=== PATIENT | female | born 1975 | race Caucasian/White ===

== ENCOUNTER 2017-05-27 09:14 | Emergency (ER) | payer SELFPAY ==
--- NOTE | 2017-05-27 11:42 | RAD ---
RIGHT KNEE SERIES: INDICATION: Trauma, pain. FINDINGS: No fracture or dislocation. No significant joint capsular distention. There is minute osteophytosi s. IMPRESSION: No acute osseous abnormality of the right knee. POS: [facility]
== END 2017-05-27 10:10 | disposition home or self-care (01) ==
LOC: MADERS 09:14
DX: F17.210 Nicotine dependence, cigarettes, uncomplicated (principal); X50.1XXA Overexertion from prolonged static or awkward postures, initial encounter

== ENCOUNTER 2017-09-10 09:43 | Emergency (ER) | payer SELFPAY ==
[2017-09-10] MEDS ORDERED: Benzonatate 100 MG CAP ONE (10:17)
[2017-09-10] MEDS ORDERED: Dexamethasone 4 MG TAB ONE (10:21)
== END 2017-09-10 11:05 | disposition home or self-care (01) ==
LOC: MADERS 09:43
DX: J20.9 Acute bronchitis, unspecified (principal); F31.9 Bipolar disorder, unspecified; Z87.891 Personal history of nicotine dependence; Z87.442 Personal history of urinary calculi
CPT/HCPCS: 99283; J8540

== ENCOUNTER 2017-10-04 10:52 | Emergency (ER) | payer SELFPAY ==
[2017-10-04] MEDS ORDERED: AMOXicillin 250 MG CAP ONE (12:01)
[2017-10-04] MEDS ORDERED: Benzonatate 100 MG CAP ONE (12:01)
== END 2017-10-04 12:20 | disposition home or self-care (01) ==
LOC: MADERS 10:52
DX: J20.9 Acute bronchitis, unspecified (principal); Z87.891 Personal history of nicotine dependence; F31.9 Bipolar disorder, unspecified
CPT/HCPCS: 99283

== ENCOUNTER 2018-03-10 09:17 | Emergency (ER) | payer SELFPAY ==
[2018-03-10] MEDS ORDERED: Naproxen 500 MG TAB ONE (09:44)
[2018-03-10] MEDS ORDERED: Cephalexin 500 MG CAP ONE (09:44)
[2018-03-10] MEDS ORDERED: Sulfameth/Trimethoprim DS 800-160mg TAB ONE (09:44)
[2018-03-10] MEDS ORDERED: Adacel (T-DAP) 0.5 ML VIAL ONE (09:53)
== END 2018-03-10 09:50 | disposition home or self-care (01) ==
LOC: MADERS 09:17
DX: T63.301A Toxic effect of unspecified spider venom, accidental (unintentional), initial encounter (principal); L03.113 Cellulitis of right upper limb; F31.9 Bipolar disorder, unspecified; Z87.891 Personal history of nicotine dependence; Z23 Encounter for immunization; Z85.43 Personal history of malignant neoplasm of ovary; Z85.819 Personal history of malignant neoplasm of unspecified site of lip, oral cavity, and pharynx; Z87.442 Personal history of urinary calculi
CPT/HCPCS: 90471; 90715

== ENCOUNTER 2018-09-11 07:48 | Emergency (ER) | payer SELFPAY ==
[2018-09-11] MEDS ORDERED: Ondansetron ODT 4 MG TAB ONE (08:31)
[2018-09-11 08:45] LABS: #Basophils 0.1 thou/uL (0.0-0.2); #Eosinphils 0.1 thou/uL (0.0-0.7); #Lymphocytes 1.6 thou/uL (1.20-3.40); #Monocytes 0.5 thou/uL (0.11-0.59); #Neutrophils 4.5 thou/uL (1.40-6.50); %Basophils 0.9 % (0.0-1.0); %Eosinophils 0.9 % (0.0-10.0); %Lymphocytes 23.4 % (21.0-51.0); %Monocytes 7.2 % (0.0-10.0); %Neutrophils 67.6 % (42.0-75.0); Hemoglobin 12.5 g/dL (12.0-16.0); Mean Corpuscular HGB CONC 32.4 g/dL (32.0-36.0); Mean Corpuscular Hemoglobin 28.1 pg (27.0-31.0); Mean Corpuscular Volume 86.9 fL (78.0-98.0); Mean Platelet Volume 7.2 fL (7.4-10.4); Platelet Count 251 thou/uL (130-400); RBC Distribution Width 11.8 % (11.5-14.5); Red Blood Cell (RBC) Count 4.43 mill/uL (4.20-5.40); White Blood Cell (WBC) Count 6.6 thou/uL (4.8-10.8)
[2018-09-11 09:05] LABS: ALT (SGPT) 16 U/L (8-55); AST (SGOT) 14 U/L (5-34); Albumin 3.9 g/dL (3.5-5.0); Alkaline Phosphatase 107 U/L (40-150); Anion Gap 13 mmol/L (10-20); BUN (Urea Nitrogen) 14 mg/dL (7.0-18.7); Bilirubin, Total 0.6 mg/dL (0.2-1.2); Calc. Creatinine Clearance 0 mL/min (70-130); Calcium 9.1 mg/dL (7.8-10.44); Carbon Dioxide 24 mmol/L (22-29); Chloride 106 mmol/L (98-107); Estimated GFR-MDRD 61; Globulin 3.1 g/dL (2.4-3.5); Glucose 104 mg/dL (70-105); Sodium 139 mmol/L (136-145)
[2018-09-11 09:07] LABS: BHCG - Serum Negative (NEGATIVE); Pregs Control Background? CLEAR/WHITE (CLR/WHITE); Pregs Control Bar Appear? YES (CONTROL BAR)
== END 2018-09-11 09:47 | disposition home or self-care (01) ==
LOC: MADERS 07:48
DX: R11.2 Nausea with vomiting, unspecified (principal); F31.9 Bipolar disorder, unspecified; Z79.891 Long term (current) use of opiate analgesic
CPT/HCPCS: 36415; 80053; 84703; 85025; 99284; Q0162

== ENCOUNTER 2021-03-15 19:28 | Emergency (ER) | payer SELFPAY | END 2021-03-15 21:20 | disposition home or self-care (01) | LOC: MADERS 19:28 | DX: M25.561 Pain in right knee (principal); M25.562 Pain in left knee; M79.672 Pain in left foot; M79.671 Pain in right foot; R21 Rash and other nonspecific skin eruption; F17.210 Nicotine dependence, cigarettes, uncomplicated; M19.90 Unspecified osteoarthritis, unspecified site; Z85.118 Personal history of other malignant neoplasm of bronchus and lung; Z85.43 Personal history of malignant neoplasm of ovary | CPT/HCPCS: 99281 ==

== ENCOUNTER 2021-09-09 06:14 | Emergency (ER) | payer SELFPAY ==
[2021-09-09 06:43] LABS: Bilirubin Negative (Negative); Blood, Urine Trace (Negative); Clarity Slightly Cloudy (Clear); Glucose, Urine (Dipstick) Negative (Negative); Ketone, Urine Negative (Negative); Leukocyte Trace (Negative); Nitrite Positive (Negative); Protein, Urine (Dipstick) Negative (Neg-Trace); Urobilinogen 0.2 mg/dL (Less than 2)
[2021-09-09 06:55] LABS: Bacteria/HPF 3+ HPF (None Seen); RBC/HPF 0-3 HPF (0-3)
[2021-09-09 07:15] LABS: #Eosinphils 0.1 thou/uL (0.0-0.7); #Lymphocytes 1.6 thou/uL (1.20-3.40); #Monocytes 0.8 thou/uL (0.11-0.59); #Neutrophils 7.6 thou/uL (1.40-6.50); %Basophils 0.5 % (0.0-1.0); %Eosinophils 0.7 % (0.0-10.0); %Monocytes 7.7 % (0.0-10.0); %Neutrophils 75.1 % (42.0-75.0); Mean Corpuscular HGB CONC 31.2 g/dL (32.0-36.0); Mean Corpuscular Hemoglobin 27.2 pg (27.0-31.0); Mean Corpuscular Volume 87.1 fL (78.0-98.0); Mean Platelet Volume 6.7 fL (7.4-10.4); Platelet Count 218 thou/uL (130-400); RBC Distribution Width 13.6 % (11.5-14.5); Red Blood Cell (RBC) Count 4.78 mill/uL (4.20-5.40); White Blood Cell (WBC) Count 10.1 thou/uL (4.8-10.8)
[2021-09-09 07:24] LABS: BHCG - Serum Negative (NEGATIVE); Pregs Control Background? CLEAR/WHITE (CLR/WHITE); Pregs Control Bar Appear? YES (CONTROL BAR)
[2021-09-09 07:27] LABS: ALT (SGPT) 24 U/L (8-55); AST (SGOT) 18 U/L (5-34); Albumin 3.6 g/dL (3.5-5.0); Alkaline Phosphatase 102 U/L (40-110); Anion Gap 15 mmol/L (10-20); BUN (Urea Nitrogen) 6 mg/dL (7.0-18.7); Bilirubin, Total 0.4 mg/dL (0.2-1.2); Calc. Creatinine Clearance 0 mL/min (70-130); Calcium 8.7 mg/dL (7.8-10.44); Carbon Dioxide 27 mmol/L (22-29); Chloride 102 mmol/L (98-107); Globulin 3.4 g/dL (2.4-3.5); Glucose 138 mg/dL (70-105); Potassium 3.5 mmol/L (3.5-5.1); Sodium 140 mmol/L (136-145)
[2021-09-09 07:28] LABS: SARS-CoV-2 NAA Rapid Test Not Detected (NotDetected)
[2021-09-09 07:28] LABS: CRP (Inflammatory) 4.6 mg/dL (= or < 0.5)
[2021-09-09] MEDS ORDERED: cefTRIAXone\\ROCEPHIN 2 GM VIAL ONE (07:29)
[2021-09-09] MEDS ORDERED: Sodium Chloride 0.9% 100 ML ONE (07:29)
[2021-09-09] MEDS ORDERED: Azithromycin 500 MG VIAL ONE (07:29)
[2021-09-09] MEDS ORDERED: methylPREDNISolone Sod Succ/PF 125 MG/2 ML VIAL ONE (07:29)
[2021-09-09] MEDS ORDERED: Sodium Chloride 0.9% 250 ML 250 ML ONE (07:29)
== END 2021-09-09 09:10 | disposition home or self-care (01) ==
LOC: MADERS 06:14
DX: J44.1 Chronic obstructive pulmonary disease with (acute) exacerbation (principal); N39.0 Urinary tract infection, site not specified; M19.90 Unspecified osteoarthritis, unspecified site; F17.210 Nicotine dependence, cigarettes, uncomplicated; E66.9 Obesity, unspecified; D02.20 Carcinoma in situ of unspecified bronchus and lung; D07.39 Carcinoma in situ of other female genital organs; Z20.822 Contact with and (suspected) exposure to COVID-19; Z68.45 Body mass index [BMI] 70 or greater, adult
CPT/HCPCS: 0240U; 71046; 80053; 81003; 81015; 82550; 83605; 83880; 84484; 84703; 85025; 86140; 87040; 93005; 94760; 96365; 96375; J0456; J0696; J2930; J3490; J7050; J7620

== ENCOUNTER 2022-05-13 20:37 | Emergency (ER) | payer SELFPAY ==
[2022-05-13] MEDS ORDERED: Azithromycin 250 MG TAB ONE (22:21)
[2022-05-13] MEDS ORDERED: Acetaminophen 500 MG TAB ONE (22:21)
[2022-05-13] MEDS ORDERED: predniSONE 20 MG TAB ONE (22:21)
== END 2022-05-13 23:01 | disposition home or self-care (01) ==
LOC: MADERS 20:37
DX: J44.1 Chronic obstructive pulmonary disease with (acute) exacerbation (principal); Z20.822 Contact with and (suspected) exposure to COVID-19; F17.210 Nicotine dependence, cigarettes, uncomplicated
CPT/HCPCS: J7512; J7620; U0003; U0005

== ENCOUNTER 2022-08-12 13:43 | Emergency (ER) | payer OTHER ==
[2022-08-12] MEDS ORDERED: Boostrix 0.5 ML (Tdap) VIAL (>/=7 yrs of age) ONE (14:54)
[2022-08-12] MEDS ORDERED: Sodium Chloride 0.9% 250 ML 250 ML ONE (14:54)
[2022-08-12 14:57] LABS: #Lymphocytes 1.8 thou/uL (1.20-3.40); #Monocytes 0.6 thou/uL (0.11-0.59); #Neutrophils 5.5 thou/uL (1.40-6.50); %Basophils 0.5 % (0.0-1.0); %Eosinophils 0.3 % (0.0-10.0); %Lymphocytes 22.9 % (21.0-51.0); %Monocytes 7.3 % (0.0-10.0); Hemoglobin 12.5 g/dL (12.0-16.0); Mean Corpuscular HGB CONC 33.1 g/dL (32.0-36.0); Mean Corpuscular Volume 87.6 fl (78.0-98.0); Mean Platelet Volume 6.7 fL (7.4-10.4); Platelet Count 255 10x3/uL (130-400); RBC Distribution Width 12.7 % (11.5-14.5); Red Blood Cell (RBC) Count 4.31 mill/uL (4.20-5.40)
[2022-08-12 15:04] LABS: BHCG - Serum Negative (NEGATIVE); Pregs Control Background? CLEAR/WHITE (CLR/WHITE); Pregs Control Bar Appear? YES (CONTROL BAR)
[2022-08-12 15:12] LABS: ALT (SGPT) 13 U/L (8-55); AST (SGOT) 11 U/L (5-34); Albumin 3.9 g/dL (3.5-5.0); Alkaline Phosphatase 118 U/L (40-110); Anion Gap 16 mmol/L (10-20); BUN (Urea Nitrogen) 9 mg/dL (7.0-18.7); Bilirubin, Total 0.3 mg/dL (0.2-1.2); Calc. Creatinine Clearance 0 mL/min (70-130); Calcium 8.7 mg/dL (7.8-10.44); Carbon Dioxide 25 mmol/L (22-29); Chloride 101 mmol/L (98-107); Estimated GFR 86; Globulin 3.4 g/dL (2.4-3.5); Glucose 115 mg/dL (70-105); Potassium 3.5 mmol/L (3.5-5.1); Protein, Total 7.3 g/dL (6.0-8.3); Sodium 138 mmol/L (136-145)
[2022-08-12] MEDS ORDERED: Sodium Chloride 0.9% 1,000 ML ONE (15:41)
[2022-08-12] MEDS ORDERED: Sodium Chloride 0.9% 100 ML ONE (16:06)
[2022-08-12] MEDS ORDERED: Piperacillin/Tazobactam 4.5 GM VIAL ONE (16:06)
[2022-08-12] MEDS ORDERED: Ketorolac Tromethamine 30 MG/ML VIAL ONE (16:31)
[2022-08-12] MEDS ORDERED: Nicotine 7 MG PATCH ONE (16:52)
[2022-08-12] MEDS ORDERED: Acetaminophen 325 MG TAB PO PRN (19:45)
== END 2022-08-12 18:15 | disposition short-term general hospital (02) ==
LOC: MADERS 13:43
DX: L03.115 Cellulitis of right lower limb (principal); L97.919 Non-pressure chronic ulcer of unspecified part of right lower leg with unspecified severity; M86.161 Other acute osteomyelitis, right tibia and fibula; E66.9 Obesity, unspecified; J44.9 Chronic obstructive pulmonary disease, unspecified; F17.210 Nicotine dependence, cigarettes, uncomplicated; Z79.899 Other long term (current) drug therapy
CPT/HCPCS: 80053; 83605; 84703; 85025; 85652; 86140; 87040; 90471; 90715; 96365; 96367; 96375; J1885; J2543; J3370; J3490; J7050

== ENCOUNTER 2022-08-30 19:35 | Emergency (ER) | payer OTHER ==
[2022-08-30 20:47] LABS: #Basophils 0.1 thou/uL (0.0-0.2); #Eosinphils 0.1 thou/uL (0.0-0.7); #Lymphocytes 2.1 thou/uL (1.20-3.40); #Monocytes 0.7 thou/uL (0.11-0.59); #Neutrophils 5.4 thou/uL (1.40-6.50); %Eosinophils 0.7 % (0.0-10.0); %Lymphocytes 25.5 % (21.0-51.0); %Monocytes 7.9 % (0.0-10.0); %Neutrophils 64.9 % (42.0-75.0); Hemoglobin 12.3 g/dL (12.0-16.0); Mean Corpuscular HGB CONC 33.7 g/dL (32.0-36.0); Mean Corpuscular Volume 86.2 fl (78.0-98.0); Mean Platelet Volume 7.2 fL (7.4-10.4); Platelet Count 241 10x3/uL (130-400); RBC Distribution Width 12.5 % (11.5-14.5); Red Blood Cell (RBC) Count 4.24 mill/uL (4.20-5.40); White Blood Cell (WBC) Count 8.3 10x3/uL (4.8-10.8)
[2022-08-30] MEDS ORDERED: Morphine 4 MG/ML VIAL ONE (20:49)
[2022-08-30] MEDS ORDERED: Sodium Chloride 0.9% 250 ML 500 ML ONE (20:49)
[2022-08-30] MEDS ORDERED: Vancomycin HCl 500 MG VIAL ONE (20:49)
[2022-08-30 21:04] LABS: Anion Gap 14 mmol/L (10-20); BUN (Urea Nitrogen) 11 mg/dL (7.0-18.7); Calc. Creatinine Clearance 0 mL/min (70-130); Calcium 9.5 mg/dL (7.8-10.44); Carbon Dioxide 26 mmol/L (22-29); Chloride 101 mmol/L (98-107); Estimated GFR 90; Glucose 101 mg/dL (70-105); Potassium 3.5 mmol/L (3.5-5.1); Sodium 137 mmol/L (136-145)
[2022-08-31] MEDS ORDERED: Ketorolac Tromethamine 30 MG/ML VIAL ONE ×2 (02:04→10:06)
[2022-08-31] MEDS ORDERED: Morphine 4 MG/ML VIAL ONE (05:46)
== END 2022-08-31 15:15 | disposition short-term general hospital (02) ==
LOC: MADERS 19:35
DX: L03.115 Cellulitis of right lower limb (principal); J44.9 Chronic obstructive pulmonary disease, unspecified; F17.200 Nicotine dependence, unspecified, uncomplicated
CPT/HCPCS: 80048; 83605; 85025; 86140; 87040; 87070; 87077; 87186; 87205; 96365; 96366; 96375; 96376; J1885; J2270; J3370; J7050

== ENCOUNTER 2023-04-27 12:33 | Emergency (ER) | payer OTHER ==
[2023-04-27 13:40] LABS: #Basophils 0.1 thou/uL (0.0-0.2); #Eosinphils 0.1 thou/uL (0.0-0.7); #Lymphocytes 2.4 thou/uL (1.20-3.40); #Monocytes 0.9 thou/uL (0.11-0.59); #Neutrophils 6.8 thou/uL (1.40-6.50); %Basophils 0.9 % (0.0-1.0); %Lymphocytes 23.2 % (21.0-51.0); %Monocytes 8.5 % (0.0-10.0); %Neutrophils 66.3 % (42.0-75.0); Hemoglobin 12.8 g/dL (12.0-16.0); Mean Corpuscular HGB CONC 34.3 g/dL (32.0-36.0); Mean Corpuscular Hemoglobin 29.7 pg (27.0-31.0); Mean Corpuscular Volume 86.6 fl (78.0-98.0); Mean Platelet Volume 7.7 fL (7.4-10.4); Platelet Count 311 10x3/uL (130-400); RBC Distribution Width 13.2 % (11.5-14.5); Red Blood Cell (RBC) Count 4.32 mill/uL (4.20-5.40); White Blood Cell (WBC) Count 10.2 10x3/uL (4.8-10.8)
[2023-04-27 13:55] LABS: CRP (Inflammatory) 0.55 mg/dL (= or < 0.5)
[2023-04-27 13:56] LABS: ALT (SGPT) 21 U/L (8-55); AST (SGOT) 14 U/L (5-34); Albumin 3.9 g/dL (3.5-5.0); Alkaline Phosphatase 101 U/L (40-110); Anion Gap 14 mmol/L (10-20); BUN (Urea Nitrogen) 13 mg/dL (7.0-18.7); Bilirubin, Total 0.5 mg/dL (0.2-1.2); Calc. Creatinine Clearance 0 mL/min (70-130); Calcium 9.3 mg/dL (7.8-10.44); Carbon Dioxide 28 mmol/L (22-29); Chloride 95 mmol/L (98-107); Estimated GFR 62; Globulin 3.5 g/dL (2.4-3.5); Glucose 94 mg/dL (70-105); Potassium 3.3 mmol/L (3.5-5.1); Protein, Total 7.4 g/dL (6.0-8.3); Sodium 134 mmol/L (136-145)
[2023-04-27] MEDS ORDERED: HYDROcodone/Acetaminophen 5/325 mg Tablet ONE (13:58)
[2023-04-27 14:04] LABS: Magnesium 1.8 mg/dL (1.6-2.6)
[2023-04-27] MEDS ORDERED: Sodium Chloride 0.9% 250 ML 250 ML ONE (14:56)
[2023-04-27] MEDS ORDERED: Vancomycin 1 GM VIAL ONE (14:56)
== END 2023-04-27 15:55 | disposition home or self-care (01) ==
LOC: MADERS 12:33
DX: L02.415 Cutaneous abscess of right lower limb (principal); L03.319 Cellulitis of trunk, unspecified; E66.9 Obesity, unspecified; J44.9 Chronic obstructive pulmonary disease, unspecified; E11.9 Type 2 diabetes mellitus without complications; Z87.891 Personal history of nicotine dependence
CPT/HCPCS: 80053; 83605; 83735; 85025; 86140; 87070; 87077; 87186; 87205; 96365; J3370; J7050

== ENCOUNTER 2023-05-26 08:37 | Emergency (ER) | payer OTHER ==
[2023-05-26 09:10] LABS: #Lymphocytes 1.9 thou/uL (1.20-3.40); #Monocytes 0.5 thou/uL (0.11-0.59); #Neutrophils 5.9 thou/uL (1.40-6.50); %Basophils 0.6 % (0.0-1.0); %Eosinophils 0.2 % (0.0-10.0); %Lymphocytes 22.8 % (21.0-51.0); %Monocytes 5.6 % (0.0-10.0); %Neutrophils 70.8 % (42.0-75.0); Hematocrit 41.3 % (36.0-47.0); Hemoglobin 14.2 g/dL (12.0-16.0); Mean Corpuscular HGB CONC 34.3 g/dL (32.0-36.0); Mean Corpuscular Hemoglobin 29.6 pg (27.0-31.0); Mean Corpuscular Volume 86.1 fl (78.0-98.0); Mean Platelet Volume 8.3 fL (7.4-10.4); Platelet Count 270 10x3/uL (130-400); RBC Distribution Width 12.5 % (11.5-14.5); Red Blood Cell (RBC) Count 4.79 mill/uL (4.20-5.40); White Blood Cell (WBC) Count 8.3 10x3/uL (4.8-10.8)
[2023-05-26 09:15] LABS: Bilirubin Negative (Negative); Blood, Urine Trace (Negative); Glucose, Urine (Dipstick) Negative (Negative); Ketone, Urine Negative (Negative); Leukocyte Negative (Negative); Nitrite Negative (Negative); Protein, Urine (Dipstick) Negative (Neg-Trace); Specific Gravity, Urine 1.025 (1.005-1.030); pH, Urine 5.5 (5.0-9.0)
[2023-05-26 09:16] LABS: Clarity Hazy (Clear)
[2023-05-26 09:27] LABS: Bacteria/HPF 2+ HPF (None Seen); RBC/HPF 0-3 HPF (0-3); WBC/HPF 0-3 HPF (0-3)
[2023-05-26 09:28] LABS: ALT (SGPT) 10 U/L (8-55); AST (SGOT) 12 U/L (5-34); Albumin 4.3 g/dL (3.5-5.0); Alkaline Phosphatase 110 U/L (40-110); Anion Gap 17 mmol/L (10-20); BUN (Urea Nitrogen) 10 mg/dL (7.0-18.7); Calc. Creatinine Clearance 0 mL/min (70-130); Calcium 9.8 mg/dL (7.8-10.44); Carbon Dioxide 33 mmol/L (22-29); Chloride 90 mmol/L (98-107); Estimated GFR 54; Globulin 3.9 g/dL (2.4-3.5); Glucose 116 mg/dL (70-105); Potassium 3.1 mmol/L (3.5-5.1); Protein, Total 8.2 g/dL (6.0-8.3); Sodium 137 mmol/L (136-145)
[2023-05-26 09:28] LABS: CAUTI Indications for Culture Pelvic or flank pain; Urine Culture Reflex Yes Yes
[2023-05-26] MEDS ORDERED: Ketorolac Tromethamine 30 MG/ML VIAL ONE (09:41)
[2023-05-26] MEDS ORDERED: Morphine 4 MG/ML VIAL ONE (09:41)
[2023-05-26] MEDS ORDERED: Ondansetron PF 4 MG/2 ML Vial ONE (09:41)
== END 2023-05-26 10:46 | disposition home or self-care (01) ==
LOC: MADERS 08:37
DX: R10.9 Unspecified abdominal pain (principal); E87.6 Hypokalemia; E87.8 Other disorders of electrolyte and fluid balance, not elsewhere classified; J44.9 Chronic obstructive pulmonary disease, unspecified; E11.9 Type 2 diabetes mellitus without complications; Z87.891 Personal history of nicotine dependence; Z79.899 Other long term (current) drug therapy
CPT/HCPCS: 74176; 80053; 81001; 85025; 87086; 96374; 96375; J1885; J2270; J2405

== ENCOUNTER 2024-05-03 14:45 | Emergency (ER) | payer OTHER ==
[2024-05-03] MEDS ORDERED: Ipratropium/Albuterol 3 ML NEB ONE (15:44)
[2024-05-03] MEDS ORDERED: Ibuprofen 800 MG TAB ONE (15:44)
[2024-05-03] MEDS ORDERED: Ibuprofen 600 MG TAB ONE (15:49)
[2024-05-03] MEDS ORDERED: metroNIDAZOLE 500 MG (100 mL) BAG ONE (16:18)
[2024-05-03 16:30] LABS: SARS-CoV-2 E Target Negative; SARS-CoV-2 N2 Target Negative; SARS-CoV-2 NAA Rapid Test Not Detected (NotDetected); SARS-CoV-2 RdRP gene Negative
== END 2024-05-03 16:26 | disposition left against medical advice (07) ==
LOC: MADERS 14:45
DX: J06.9 Acute upper respiratory infection, unspecified (principal); L03.115 Cellulitis of right lower limb; I10 Essential (primary) hypertension; J44.9 Chronic obstructive pulmonary disease, unspecified; Z87.891 Personal history of nicotine dependence
CPT/HCPCS: 71046; 94640; J7620; U0002

== ENCOUNTER 2024-07-13 05:39 | Emergency (ER) | payer OTHER ==
[2024-07-13] MEDS ORDERED: Diphenoxylate HCl/Atropine Tablet ONE ×2 (06:44→07:01)
[2024-07-13] MEDS ORDERED: Sodium Chloride 0.9% 2,000 ML ONE (06:44)
[2024-07-13] MEDS ORDERED: Ondansetron PF 4 MG/2 ML Vial ONE (06:44)
[2024-07-13 07:50] LABS: #Eosinophils 0.1 thou/uL (0.0-0.7); #Lymphocytes 0.8 thou/uL (1.20-3.40); #Monocytes 0.3 thou/uL (0.11-0.59); #Neutrophils 7.9 thou/uL (1.40-6.50); %Basophils 0.4 % (0.0-1.0); %Eosinophils 1.3 % (0.0-10.0); %Lymphocytes 8.3 % (21.0-51.0); %Monocytes 3.4 % (0.0-10.0); %Neutrophils 86.6 % (42.0-75.0); Hematocrit 41.1 % (36.0-47.0); Hemoglobin 13.4 g/dL (12.0-16.0); Mean Corpuscular HGB CONC 32.5 g/dL (32.0-36.0); Mean Corpuscular Hemoglobin 28.4 pg (27.0-31.0); Mean Corpuscular Volume 87.5 fl (78.0-98.0); Mean Platelet Volume 7.8 fL (7.4-10.4); Platelet Count 200 10x3/uL (130-400); RBC Distribution Width 13.6 % (11.5-14.5); White Blood Cell (WBC) Count 9.2 10x3/uL (4.8-10.8)
[2024-07-13 08:02] LABS: ALT (SGPT) 24 U/L (8-55); AST (SGOT) 13 U/L (5-34); Albumin 3.6 g/dL (3.5-5.0); Alkaline Phosphatase 84 U/L (40-110); Anion Gap 18 mmol/L (10-20); BUN (Urea Nitrogen) 12 mg/dL (9.8-20.1); Bilirubin, Total 0.7 mg/dL (0.2-1.2); Calc. Creatinine Clearance 0 mL/min (70-130); Calcium 8.9 mg/dL (7.8-10.44); Carbon Dioxide 28 mmol/L (22-29); Chloride 98 mmol/L (98-107); Estimated GFR 82; Globulin 3.8 g/dL (2.4-3.5); Glucose 136 mg/dL (70-105); Potassium 2.9 mmol/L (3.5-5.1); Protein, Total 7.4 g/dL (6.0-8.3); Sodium 141 mmol/L (136-145)
[2024-07-13] MEDS ORDERED: Potassium Chloride 20 MEQ TAB ONE (08:14)
[2024-07-13 08:23] LABS: Magnesium 1.6 mg/dL (1.6-2.6)
[2024-07-13] MEDS ORDERED: Albuterol 200 PUFF (6.7GM INHALER) ONE (08:40)
[2024-07-13] MEDS ORDERED: methylPREDNISolone Sod Succ/PF 125 MG/2 ML VIAL ONE (08:40)
== END 2024-07-13 09:50 | disposition home or self-care (01) ==
LOC: MADERS 05:39
DX: J44.1 Chronic obstructive pulmonary disease with (acute) exacerbation (principal); E87.6 Hypokalemia; R11.10 Vomiting, unspecified; R19.7 Diarrhea, unspecified; I10 Essential (primary) hypertension; F17.200 Nicotine dependence, unspecified, uncomplicated
CPT/HCPCS: 36415; 71045; 80053; 83735; 85025; 87400; 87426; 96361; 96374; 96375; J2405; J2919; J7030

== ENCOUNTER 2024-09-08 17:51 | Emergency (ER) | payer OTHER ==
[2024-09-08] MEDS ORDERED: predniSONE 10 MG TAB ONE (18:10)
[2024-09-08] MEDS ORDERED: Albuterol 200 PUFF (6.7GM INHALER) ONE (18:10)
[2024-09-08] MEDS ORDERED: predniSONE 20 MG TAB ONE (18:11)
== END 2024-09-08 18:50 | disposition home or self-care (01) ==
LOC: MADERS 17:51
DX: J44.1 Chronic obstructive pulmonary disease with (acute) exacerbation (principal); H61.21 Impacted cerumen, right ear; I10 Essential (primary) hypertension; F17.200 Nicotine dependence, unspecified, uncomplicated
CPT/HCPCS: 99284; J7512